=== PATIENT | female | born 1960 | race Caucasian/White ===

== ENCOUNTER 2022-09-20 09:22 | Outpatient (REF) | payer MEDICARE, MEDICAID, SELFPAY ==
--- NOTE | 2022-09-20 11:03 | MHC.AU.MED ---
Medical Clearance for Hearing Instrumentation Date: 09/20/22 Patient Name: Allyssa Loo Date of : 1960 Referring Provider: William Roy PA-C We have seen your patient on 09/20/22 and have determined that they are a candidate for amplification (See accompanying report). Specifically, they would benefit from: Hearing aid use in both ears There is a statute that addresses Medical Evaluation Requirements prior to fitting a patient with a hearing aid. According to [place] statute 265 CMR:6.03(1), (a) General. Except as provided in 265 CMR 6.03(1)(b), a deaf and hard of hearing teacher shall not sell a hearing aid unless the prospective user has presented to the deaf and hard of hearing teacher a written statement signed by a licensed physician that states that the patient's hearing loss has been medically evaluated and the patient may be considered a candidate for a hearing aid. The medical evaluation must have taken place within the preceding six months. Please note: Due to the [place] Statute referenced above, we cannot accept a signature other than that of a licensed physician. [employer] and PA signatures cannot be accepted. I am in agreement with the above recommendation. There is no medical contraindication for hearing instrumentation. Physician Signature Date Physician Name (Printed)
--- NOTE | 2022-09-20 11:07 | MHC.AU.HA1 ---
Hearing Aid Evaluation Date of Visit: 09/20/22 Submarine Operator Used: French- By Phone Historical Information: Description of Hearing: Normal at 250 Hz, sloping to mild/moderate sensorineural hearing loss bilaterally Summary: Patient was seen for audiological evaluation (see separate report for details). She feels her hearing loss is starting to impact daily life. She has been asking people for repetition more frequently. She also experiences bothersome tinnitus. Hearing aid options were discussed. Hearing Aid Prescription: Based on the individual?s shared listening needs, communication environments, dexterity, desire for connectivity, and personal preferences, the following prescription for amplification has been made: Right ear: Make, Model, Color: Phonak Audeo L70-R Battery Size: Rechargeable Tool And Fixture Repairer/Slim Tube: 1M Left ear: Make, Model, Color: Phonak Audeo L70-R Battery Size: Rechargeable Tool And Fixture Repairer/Slim Tube: 1M Action Taken/Action Needed: Medical Clearance to be requested from PCP/ENT Hearing Instrument Fitting to be scheduled when materials arrive Primary Diagnosis: H90.3 Bilateral Sensorineural Hearing Loss Secondary Diagnosis: H93.19 Tinnitus, Unspecified Ear Signature: Provider: Alex Guadarrama, [facility]
== END 2022-09-20 09:23 | disposition home or self-care (01) ==
LOC: HO.SH 09:22
PROVIDERS: Visit Provider Physician Assistant Medical
DX: Z01.118 Encounter for examination of ears and hearing with other abnormal findings (principal); Z46.1 Encounter for fitting and adjustment of hearing aid; H90.3 Sensorineural hearing loss, bilateral; H93.19 Tinnitus, unspecified ear
CPT/HCPCS: 92553; 92567; 92591